=== PATIENT | female | born 1945 | race Caucasian/White ===

== ENCOUNTER 2021-04-04 05:24 | Day surgery (SDC) | payer MEDICARE, OTHER ==
[2021-03-30 16:22] LABS: BASOPHILS # (AUTO) 0.1 X10'3 (0-0.2); BASOPHILS % (AUTO) 0.9 % (0-1); EOSINOPHILS # (AUTO) 0.3 X10'3 (0-0.9); LYMPHOCYTES # (AUTO) 2.3 X10'3 (1.1-4.8); LYMPHOCYTES % (AUTO) 27.7 % (21-51); MEAN CORPUSCULAR HEMOGLOBIN 31.3 PG (27.0-31.0); MEAN CORPUSCULAR HGB CONC 33.9 g/dL (33.0-36.5); MEAN CORPUSCULAR VOLUME 92.2 FL (78-98); MEAN PLATELET VOLUME 7.2 FL (7.4-10.4); MONOCYTES # (AUTO) 0.6 X10'3 (0-0.9); MONOCYTES % (AUTO) 6.7 % (2-12); NEUTROPHILS # (AUTO) 5.1 X10'3 (1.8-7.7); NEUTROPHILS % (AUTO) 61.7 % (42-75); PRE OP HEMATOCRIT 41.3 % (35.0-45.0); PRE OP PLATELET COUNT 312 X10'3 (140-440); RED BLOOD COUNT 4.48 X10'6 (4.20-5.60); RED CELL DISTRIBUTION WIDTH 12.8 % (11.5-14.5)
[2021-03-30 16:38] LABS: ALBUMIN/GLOBULIN RATIO 1.1 (1.1-1.5); ALKALINE PHOSPHATASE 89 IU/L (46-116); BLOOD UREA NITROGEN 11 MG/DL (7-18); BUN/CREATININE RATIO 11.1 (6.6-38.0); CALCIUM 9.5 MG/DL (8.5-10.1); CHLORIDE 104 MMOL/L (99-107); CREATININE 0.99 MG/DL (0.40-0.90); PRE OP ALT 27 U/L (30-65); PRE OP ANION GAP 12 (8-16); PRE OP AST 20 U/L (10-37); PRE OP BILIRUB, TOTAL 0.4 MG/DL (0.0-1.0); PRE OP GLUCOSE 155 MG/DL (70-104); PRE OP POTASSIUM 3.6 MMOL/L (3.4-5.1); PRE OP SODIUM 144 MMOL/L (135-145); TOTAL CARBON DIOXIDE 28.2 MMOL/L (24-32); TOTAL PROTEIN 7.5 G/DL (6.4-8.2); eGFR 55 ML/MIN
[~2021-04-04] VITALS: Ht 172.7 cm; Wt 114.7 kg
[~2021-04-04 05:24] MED LIST: ASPI-1265 PO; CALC-336 PO; CITA40TA22 PO; FURO40TA4 PO; GABA800T11 PO; LORA-269 PO; LOSA100T57 PO; METF-900 PO; MULT-1085 PO; OMEG-79 PO; ROSU5TAB12 PO; ringers solution, lacted 1,000 ML IV SCH
[2021-04-04 05:30] VITALS: BP 166/70
[2021-04-04] MEDS ORDERED: cefazolin/dext.iso 2gm/50ml IV ONE (05:30)
[2021-04-04] MEDS ORDERED: famotidine 20mg tablet PO ONE (05:30)
[2021-04-04] MEDS ORDERED: fentaNYL/PF 50MCG/1 ML 2ML syringe ONE (08:13)
[2021-04-04] MEDS ORDERED: midazolam 1 mg/ML 2ml injection ONE (08:14)
[2021-04-04] MEDS ORDERED: hydrALAZINE 20mg/ml inj. IV PRN (08:20)
[2021-04-04] MEDS ORDERED: meperidine/PF 25mg/ml syringe IV PRN (08:20)
[2021-04-04] MEDS ORDERED: labetalol 20mg/4ml (5mg/ml) syringe IV PRN (08:20)
[2021-04-04] MEDS ORDERED: morphine 2 MG/ML inj. syringe IV PRN (08:20)
[2021-04-04] MEDS ORDERED: morphine 4 MG/ML inj SYRINge IV PRN (08:20)
[2021-04-04] MEDS ORDERED: HYDROmorphone/PF 0.2 MG/ML SYRINGE IV PRN ×2 (08:20)
[2021-04-04] MEDS ORDERED: acetaminophen 1,000mg/100ml IV 100 ML IV PRN (08:20)
[2021-04-04] MEDS ORDERED: ondansetron/PF 4mg/2ml inj IV PRN (08:20)
[2021-04-04] MEDS ORDERED: proCHLORperazine 10 MG/2 ml inj IV PRN (08:20)
[2021-04-04] MEDS ORDERED: ringers solution, lacted 1,000 ML IV SCH (08:20)
[2021-04-04] MEDS ORDERED: BUPIVAcaine/PF 5 mg/ml 10ml IJ ONE (08:37)
[2021-04-04] MEDS ORDERED: LIDOcaine 0.5% (5mg/ml) 50ml vial ONE (08:40)
[2021-04-04] MEDS ORDERED: propofol inj 20 ML IV ONE (08:40)
[2021-04-04 08:53] VITALS: BP 114/63
--- NOTE | 2021-04-04 08:53 | NUR ---
Received from OR via , accompanied by Anesthesiologist DR CEDILLO and report given by Anesthesiolgist.AWKENS TO VOICE. VITALS STABLE. DRESSING DI. JUDY PAIN. FINGERS WARM AND PINK.
[2021-04-04 09:03] VITALS: BP 108/56
[2021-04-04 09:13] VITALS: BP 121/54
[2021-04-04 09:23] VITALS: BP 126/57
--- NOTE | 2021-04-04 09:33 | NUR ---
AWAKE AND ORIENTED. VITALS STABLE. DRESSING DI. JUDY PAIN. HOME WITH HER BROTHER AT THIS TIME.
== END 2021-04-04 09:33 | disposition home or self-care (01) ==
LOC: PAS 05:24
PROVIDERS: ATTEND Orthopaedic Surgery Hand Surgery
DX: G56.01 Carpal tunnel syndrome, right upper limb (principal); I10 Essential (primary) hypertension; G89.29 Other chronic pain; F32.9 Major depressive disorder, single episode, unspecified; E11.9 Type 2 diabetes mellitus without complications; M19.90 Unspecified osteoarthritis, unspecified site; G47.33 Obstructive sleep apnea (adult) (pediatric); E66.9 Obesity, unspecified; Z68.38 Body mass index [BMI] 38.0-38.9, adult; Z20.822 Contact with and (suspected) exposure to COVID-19; Z79.899 Other long term (current) drug therapy; Z79.82 Long term (current) use of aspirin; Z79.84 Long term (current) use of oral hypoglycemic drugs; Z88.8 Allergy status to other drugs, medicaments and biological substances; Z98.890 Other specified postprocedural states
CPT/HCPCS: 36415; 64721; 80053; 82948; 85025; 93005; J0690; J2250; J2704; J3010; J3490; J7030; J7120; U0003; U0005; Z7506; Z7512; A4215; A6449